=== PATIENT | male | born 1975 | race African-American/Black ===

== ENCOUNTER 2018-10-16 14:34 | Emergency (ER) | payer OTHER ==
[~2018-10-16] VITALS: Ht 185.4 cm; Wt 168.7 kg
[2018-10-16 15:56] VITALS: BP 145/92
[2018-10-16] MEDS ORDERED: KETOROLAC TROMETH 60MG/2ML VIAL IM ONE (16:45)
== END 2018-10-16 17:52 | disposition home or self-care (01) ==
LOC: ER 14:37
DX: S86.912A Strain of unspecified muscle(s) and tendon(s) at lower leg level, left leg, initial encounter (principal); S86.012A Strain of left Achilles tendon, initial encounter; E11.9 Type 2 diabetes mellitus without complications; Z88.1 Allergy status to other antibiotic agents; W01.0XXA Fall on same level from slipping, tripping and stumbling without subsequent striking against object, initial encounter; Y93.89 Activity, other specified; Y92.89 Other specified places as the place of occurrence of the external cause; Y99.8 Other external cause status
CPT/HCPCS: 29515; 73590; 73700; 96372; 99284; J1885; 29505